=== PATIENT | female | born 1930 | race Caucasian/White ===

== ENCOUNTER 2017-12-03 15:09 | Emergency (ER) | payer MEDICARE, OTHER ==
--- NOTE | 2017-12-03 18:32 | CT ---
CT HEAD NONCONTRAST 12/03/17 HISTORY: Fall. Head injury. COMPARISON: 03/22/13. FINDINGS: There is no evidence of acute intracranial hemorrhage or infarct. Diffuse cortical atrophy and chroni c ischemic small vessel disease are apparent. There is no mass effect or shift of midline structures. Prominent calcification of the arterial structures. Large scalp hematoma overlying the right frontal calvarium. The visualized paranasal sinuses are well aerated. IMPRESSION: 1. No acute intracranial abnormalities are demonstrated. 2. Atherosclerosis. 3. Large right frontal scalp hematoma. POS: [facility]
--- NOTE | 2017-12-03 19:40 | CT ---
CT CERVICAL SPINE WITH CORONAL AND SAGITTAL REFORMATIONS: 12/03/17 HISTORY: Fall. Neck pain. Trauma. FINDINGS/IMPRESSION: Extensive degenerative changes are seen in the cervical spine. No fracture is identified. There is mi nimal anterolisthesis of C3 over C4 and C7 over T1 and T1 over T2 vertebral bodies. There is a partia lly calcified 2.5 cm right thyroid lobe nodule. POS: [facility]
--- NOTE | 2017-12-03 20:45 | RAD ---
RIGHT SHOULDER: 12/03/17 Three views. HISTORY: Fall. Pain and injury to shoulder. There is a fracture of the distal right clavicle. There is severe hypertrophic changes seen at the AC joint and at the glenohumeral joint. 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 Prominent subchondral cystic changes are seen in the humeral head. IMPRESSION: 1. Fracture of the distal right clavicle. 2. 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 POS: [facility]
--- NOTE | 2017-12-03 20:48 | RAD ---
PORTABLE CHEST: 12/03/17 HISTORY: Fall with dizziness. COMPARISON: 07/23/15. The lung stewart appear clear of infiltrate. Rib deformities on the left are stable indicating old hea led left rib fractures. There is a fracture of the distal right clavicle which is described on dedicated views of the shoulde r. Severe hypertrophic degenerative changes seen at both shoulders. Lungs show no focal infiltrates. There is mild vascular engorgement and some interstitial prominence. No effusion. IMPRESSION: No acute lung process. Other findings as described above. POS: [facility]
== END 2017-12-03 19:52 | disposition home or self-care (01) ==
LOC: ERS 15:09
DX: S42.031A Displaced fracture of lateral end of right clavicle, initial encounter for closed fracture (principal); S01.81XA Laceration without foreign body of other part of head, initial encounter; W19.XXXA Unspecified fall, initial encounter; Y92.009 Unspecified place in unspecified non-institutional (private) residence as the place of occurrence of the external cause; E11.40 Type 2 diabetes mellitus with diabetic neuropathy, unspecified; G47.00 Insomnia, unspecified; I48.91 Unspecified atrial fibrillation; K21.9 Gastro-esophageal reflux disease without esophagitis; E78.5 Hyperlipidemia, unspecified; I10 Essential (primary) hypertension; M19.90 Unspecified osteoarthritis, unspecified site; F03.90 Unspecified dementia, unspecified severity, without behavioral disturbance, psychotic disturbance, mood disturbance, and anxiety; F41.9 Anxiety disorder, unspecified; Z79.01 Long term (current) use of anticoagulants; Z79.84 Long term (current) use of oral hypoglycemic drugs; Z79.899 Other long term (current) drug therapy
CPT/HCPCS: 70450; 71045; 72125